=== PATIENT | male | born 1965 ===

== ENCOUNTER 2018-08-19 07:08 | Day surgery (SDC) | payer OTHER ==
[~2018-08-19] VITALS: Ht 177.8 cm; Wt 107.0 kg
[~2018-08-19 07:08] MED LIST: ALBU90OI61; Flovent 110 MCG12 GM; MONT10T; NAPR500; OMEP20ER; ZYRTEC10 M2
== END 2018-08-19 09:16 | disposition home or self-care (01) ==
LOC: ORSCSDS 07:08
PROVIDERS: Student in an Organized Health Care Education/Training Program
PROC: 0DB58ZX Excision of Esophagus, Via Natural or Artificial Opening Endoscopic, Diagnostic (ICD-10-PCS; principal; 2018-08-19 08:30)
PROC: 0DB48ZX Excision of Esophagogastric Junction, Via Natural or Artificial Opening Endoscopic, Diagnostic (ICD-10-PCS; principal; 2018-08-19 08:30)
PROC: 0DB98ZX Excision of Duodenum, Via Natural or Artificial Opening Endoscopic, Diagnostic (ICD-10-PCS; principal; 2018-08-19 08:30)
PROC: 0DB68ZX Excision of Stomach, Via Natural or Artificial Opening Endoscopic, Diagnostic (ICD-10-PCS; principal; 2018-08-19 08:30)
DX: R13.10 Dysphagia, unspecified (principal); K21.9 Gastro-esophageal reflux disease without esophagitis; K29.70 Gastritis, unspecified, without bleeding; K44.9 Diaphragmatic hernia without obstruction or gangrene; J45.909 Unspecified asthma, uncomplicated; Z79.899 Other long term (current) drug therapy
CPT/HCPCS: 88305; 88342; J0461; J2405; J2704; J7120